=== PATIENT | female | born 1960 | race Asian ===

== ENCOUNTER 2018-03-29 18:45 | Emergency (ER) | payer OTHER ==
[~2018-03-29] VITALS: Ht 162.6 cm; Wt 72.6 kg
[2018-03-29 19:34] LABS: PLATELET COUNT 255 K/uL (152-353)
[2018-03-29 19:53] LABS: POTASSIUM 3.8 mmol/L (3.6-5.2)
[2018-03-29 20:20] VITALS: BP 125/74; TEMP 97.7
[2018-03-29] MEDS ORDERED: ADLT ASA LOW81 MG PO (21:47)
[2018-03-29] MEDS ORDERED: FLUTMIS6 INH (21:48)
[2018-03-29] MEDS ORDERED: ALBUTEROL0.083 % IN (21:50)
[2018-03-29] MEDS ORDERED: AUBAGIO14 MG PO (21:54)
[2018-03-29] MEDS ORDERED: NORGEST/ETH1 PO (21:57)
[2018-03-29] MEDS ORDERED: SERT50TA PO (21:58)
[2018-03-29] MEDS ORDERED: VENTOLIN HFA INH (22:02)
[2018-03-29] MEDS ORDERED: ACETAMINOPHEN500 M2 PO (22:03)
[2018-03-29] MEDS ORDERED: OXYB5TAB64 PO (22:04)
[2018-03-29] MEDS ORDERED: GABA300C2 PO (22:05)
[2018-03-29] MEDS ORDERED: [UNRECOGNIZED DRUG - OTHER] PO (22:06)
[2018-03-29] MEDS ORDERED: HYDROCHLOROT50 MG PO (22:07)
[2018-03-29] MEDS ORDERED: VITAMIN B-150 MG PO (22:08)
[2018-03-29] MEDS ORDERED: AMIT25TA22 PO (22:11)
[2018-03-29] MEDS ORDERED: HYDR-3182 PO (22:12)
[2018-03-29] MEDS ORDERED: BIOFREEZE TOP (22:14)
== END 2018-03-29 20:20 | disposition other institution (70) ==
LOC: ED 18:45
DX: Z04.6 Encounter for general psychiatric examination, requested by authority (principal); F32.89 Other specified depressive episodes
CPT/HCPCS: 36415; 80053; 83735; 84100; 85027; 93005; 99285

== ENCOUNTER 2021-03-11 20:14 | Emergency (ER) | payer OTHER ==
[~2021-03-11] VITALS: Ht 162.6 cm; Wt 103.4 kg
[~2021-03-11 20:14] MED LIST: ACETAMINOPHEN500 M2 PO; ADLT ASA LOW81 MG PO; ALBUTEROL0.083 % IN; AMIT25TA22 PO; ATOR20TA2 PO; AUBAGIO14 MG PO; BIOFREEZE TOP; CYAN10009 IM; DULO30CA PO; FLUTMIS6 INH; GABA300C2 PO; HYDR-3182 PO; HYDROCHLOROT50 MG PO; NORGEST/ETH1 PO; OXYB5TAB64 PO; SERT50TA PO; VALPROIC ACID10 ML PO; VENTOLIN HFA INH; VITAMIN B-150 MG PO; [UNRECOGNIZED DRUG - OTHER] PO
[2021-03-11 21:14] LABS: PLATELET COUNT 267 K/uL (152-353)
[2021-03-11 21:24] LABS: POTASSIUM 3.2 mmol/L (3.6-5.2)
[2021-03-11 22:20] VITALS: BP 136/87; TEMP 97.9
[2021-03-11] MEDS ORDERED: ALBUTEROL0.083 % INH (23:18)
[2021-03-11] MEDS ORDERED: ALLO100T22 PO (23:19)
[2021-03-11] MEDS ORDERED: ESTRADIOL PO (23:21)
[2021-03-11] MEDS ORDERED: HYDROCHLOROT12.5 M1 PO (23:22)
[2021-03-11] MEDS ORDERED: MIRALAX17 GM PO (23:24)
[2021-03-11] MEDS ORDERED: SERT50TA PO (23:25)
[2021-03-11] MEDS ORDERED: MUCINEX600 MG PO (23:25)
[2021-03-11] MEDS ORDERED: VALSARTAN40 MG PO (23:26)
== END 2021-03-11 22:20 | disposition other institution (70) ==
LOC: ED 20:14
PROVIDERS: Emergency Medicine
DX: R46.89 Other symptoms and signs involving appearance and behavior (principal); R45.1 Restlessness and agitation; E11.65 Type 2 diabetes mellitus with hyperglycemia; Z11.52 Encounter for screening for COVID-19; Z04.6 Encounter for general psychiatric examination, requested by authority; Z79.899 Other long term (current) drug therapy
CPT/HCPCS: 36415; 80053; 81000; 85027; 87077; 87086; 87088; 87186; 87635; 93005; 96372; 99283; J1815; U0003

== ENCOUNTER 2021-05-01 16:14 | Emergency (ER) | payer OTHER ==
[~2021-05-01] VITALS: Ht 162.6 cm; Wt 108.9 kg
[~2021-05-01 16:14] MED LIST changes: +ALBUTEROL0.083 % INH; +ALLO100T22 PO; +DICL1GEL2 TOP; +ESTRADIOL PO; +HYDROCHLOROT12.5 M1 PO; +INSU300I SC; +LIDOPATCH TOP; +MIRALAX17 GM PO; +MUCINEX600 MG PO; +NICODERM C14 MG/241 TD; +OLANZAPINE5 MG PO; +VALSARTAN40 MG PO; +VITAMIN D50000 UNIT PO
[2021-05-01 16:21] VITALS: BP 137/88; TEMP 97.7
[2021-05-01 16:36] LABS: PLATELET COUNT 274 K/uL (152-353)
[2021-05-01 16:49] LABS: POTASSIUM 3.7 mmol/L (3.6-5.2)
[2021-05-01] MEDS ORDERED: HYDR25TA60 PO (18:52)
[2021-05-01] MEDS ORDERED: INSU300I SC (18:53)
[2021-05-01] MEDS ORDERED: NOVOLOG FL100 UNIT/M SC (18:58)
[2021-05-01] MEDS ORDERED: METF500T PO (18:58)
[2021-05-01] MEDS ORDERED: HYDROCODONE BIT1 TA1 PO (19:00)
[2021-05-01] MEDS ORDERED: DULO30CA PO (19:01)
== END 2021-05-01 17:22 | disposition other institution (70) ==
LOC: ED 16:14
PROVIDERS: Family Medicine
DX: R46.89 Other symptoms and signs involving appearance and behavior (principal); R60.0 Localized edema; Z04.6 Encounter for general psychiatric examination, requested by authority
CPT/HCPCS: 80053; 85027; 93005; 99283

== ENCOUNTER 2022-11-12 18:55 | Emergency (ER) | payer OTHER ==
[~2022-11-12] VITALS: Ht 165.1 cm; Wt 112.5 kg
[2022-11-12 18:55] VITALS: BP 157/88; TEMP 98.3
[~2022-11-12 18:55] MED LIST changes: +ASPIR-LOW81 MG PO; +HYDR25TA60 PO; +HYDROCODONE BIT1 TA1 PO; +METF500T PO; +NOVOLOG FL100 UNIT/M SC; +OXCARBAZEPIN300 MG PO; +RISP0.25 PO; +TRAZ50TA36 PO
[2022-11-12 19:31] LABS: PLATELET COUNT 299 K/uL (152-353)
[2022-11-12 19:33] LABS: POTASSIUM 3.4 mmol/L (3.6-5.2)
[2022-11-13] MEDS ORDERED: ASA LOW DOSE81 MG PO (11:49)
[2022-11-13] MEDS ORDERED: BIOTIN PO (11:50)
[2022-11-13] MEDS ORDERED: FURO20TA67 PO (11:51)
[2022-11-13] MEDS ORDERED: ESTRADIOL PO (11:51)
[2022-11-13] MEDS ORDERED: LOSA50TA PO (11:52)
[2022-11-13] MEDS ORDERED: TRESIBA FL200 UNIT/M SC (11:52)
[2022-11-13] MEDS ORDERED: MULTIVITAMI1 PO (11:53)
[2022-11-13] MEDS ORDERED: K-TABS10 MEQ PO (11:53)
[2022-11-13] MEDS ORDERED: COLACE 2-IN-1 81 TAB PO (11:54)
[2022-11-13] MEDS ORDERED: SERT50TA PO (11:54)
[2022-11-13] MEDS ORDERED: TRAZ50TA36 PO (11:55)
[2022-11-13] MEDS ORDERED: ALBUTEROL108 MCG/AC INH ×2 (11:56→12:00)
[2022-11-13] MEDS ORDERED: PROSTAT SF PO (11:57)
[2022-11-13] MEDS ORDERED: HYDR5TAB9 PO (11:59)
[2022-11-13] MEDS ORDERED: MELATONIN5 M4 PO (11:59)
[2022-11-13] MEDS ORDERED: NOVOLOG100 UNIT/M SC (12:01)
== END 2022-11-12 19:59 | disposition still patient (30) ==
LOC: ED 18:55
PROVIDERS: Emergency Medicine Emergency Medical Services
DX: R46.89 Other symptoms and signs involving appearance and behavior (principal); R45.1 Restlessness and agitation; Z11.52 Encounter for screening for COVID-19; Z04.6 Encounter for general psychiatric examination, requested by authority
CPT/HCPCS: 36415; 80053; 85027; 87635; 93005; 99283; U0003

== ENCOUNTER 2023-02-16 18:14 | Emergency (ER) | payer OTHER ==
[~2023-02-16] VITALS: Ht 165.1 cm; Wt 112.5 kg
[~2023-02-16 18:14] MED LIST changes: +ALBU90AE13 INH; +ALBUTEROL108 MCG/AC INH; +ASA LOW DOSE81 MG PO; +BIOTIN PO; +BLOOMIS59 SC; +CASA100C53 PO; +COLACE 2-IN-1 81 TAB PO; +ENTERIC COATED325 MG PO; +FURO20TA67 PO; +HYDR5TAB9 PO; +INSU100P SC; +K-TABS10 MEQ PO; +LORA0.5T17 PO; +LOSA50TA PO; +MAGNSUS68 PO; +MELATONIN MAXIMU5 MG PO; +MELATONIN5 M4 PO; +MULTIVITAMI1 PO; +MULTTAB52 PO; +NOVOLOG100 UNIT/M SC; +POTA10CA3 PO; +PROSTAT SF PO; +TRESIBA FL200 UNIT/M SC; +ZOLOFT25 MG PO
[2023-02-16 18:15] VITALS: BP 167/84; TEMP 98.2
[2023-02-16 18:56] LABS: PLATELET COUNT 268 K/uL (152-353)
[2023-02-16 19:10] LABS: POTASSIUM 3.5 mmol/L (3.6-5.2)
[2023-02-16] MEDS ORDERED: DQZATE100 MG PO (21:14)
[2023-02-16] MEDS ORDERED: LANTUS SOL100 UNIT/M SC (21:16)
[2023-02-17] MEDS ORDERED: SPIRIVA HANDIH18 MCG INH (07:16)
[2023-02-17] MEDS ORDERED: CRANBERRY300 MG PO (07:18)
[2023-02-17] MEDS ORDERED: LORA0.5T17 PO (07:19)
[2023-02-17] MEDS ORDERED: PAIN RELIEF EX500 MG PO (07:23)
[2023-02-17] MEDS ORDERED: GUAIFENESIN DM PO (07:25)
[2023-02-17] MEDS ORDERED: HYDR5TAB9 PO (07:26)
[2023-02-17] MEDS ORDERED: MILK OF MA400 MG/5 M PO (07:28)
[2023-02-17] MEDS ORDERED: ALBU90AE13 INH (07:29)
[2023-02-17] MEDS ORDERED: LANTUS SOL100 UNIT/M SC (11:36)
[2023-02-20] MEDS ORDERED: TYLENOL 500MG TAB PO (11:36)
[2023-02-20] MEDS ORDERED: ROBITUSSIN DM SYRUP PO (11:37)
[2023-02-20] MEDS ORDERED: ENTERIC COATED325 MG PO (11:37)
[2023-02-20] MEDS ORDERED: ALBU90AE13 INH (11:37)
[2023-02-20] MEDS ORDERED: DOCU100C10 PO (11:38)
[2023-02-20] MEDS ORDERED: FURO20TA67 PO (11:38)
[2023-02-20] MEDS ORDERED: ERTA1INJ2 IM (11:38)
[2023-02-20] MEDS ORDERED: HYDR5TAB9 PO (11:39)
[2023-02-20] MEDS ORDERED: INSUINJ20 SC (11:42)
[2023-02-20] MEDS ORDERED: LORA0.5T17 PO (11:42)
[2023-02-20] MEDS ORDERED: INSU-1996 SC (11:42)
[2023-02-20] MEDS ORDERED: LOSA50TA PO (11:43)
[2023-02-20] MEDS ORDERED: MAGNSUS68 PO (11:43)
[2023-02-20] MEDS ORDERED: MELATONIN MAXIMU5 MG PO (11:43)
[2023-02-20] MEDS ORDERED: POTA10CA3 PO (11:44)
[2023-02-20] MEDS ORDERED: MULTTAB52 PO (11:44)
[2023-02-20] MEDS ORDERED: SERT50TA PO (11:45)
[2023-02-20] MEDS ORDERED: TIOTCAP2 INH (11:45)
[2023-02-20] MEDS ORDERED: TRAZ50TA36 PO (11:46)
== END 2023-02-16 20:07 | disposition still patient (30) ==
LOC: ED 18:14
PROVIDERS: Emergency Medicine Emergency Medical Services
DX: R45.6 Violent behavior (principal); J18.8 Other pneumonia, unspecified organism; Z02.79 Encounter for issue of other medical certificate
CPT/HCPCS: 36415; 80053; 85027; 87635; 93005; 99283; J0696; U0003